=== PATIENT | female | born 1950 | race Caucasian/White ===

== ENCOUNTER 2019-03-13 05:20 | Day surgery (SDC) | payer MEDICARE, MEDICAID ==
[~2019-03-13] VITALS: Ht 157.5 cm; Wt 60.0 kg
[2019-03-13] MEDS ORDERED: SODIUM CHLORIDE 0.9% 1,000 ML IV ONE ×2 (05:31→05:45)
[2019-03-13 05:54] LABS: EOSINOPHILS % (AUTO) 2.1 % (1.0-6.0); HEMATOCRIT 38.4 % (36-46); LYMPHOCYTES # (AUTO) 1.5 K/uL (1.0-4.8); LYMPHOCYTES % (AUTO) 26.3 % (22.0-44.0); MEAN CORPUSCULAR HEMOGLOBIN 31.1 pg (26.0-34.0); MEAN CORPUSCULAR HGB CONC 33.9 G/dL (31.0-37.0); MEAN CORPUSCULAR VOLUME 92 fL (80-100); MONOCYTES # (AUTO) 0.5 K/uL (0.1-1.0); MONOCYTES % (AUTO) 8.7 % (2.0-9.0); NEUTROPHILS # (AUTO) 3.6 K/uL (1.8-7.7); NEUTROPHILS % (AUTO) 61.9 % (40.0-70.0); PLATELET COUNT (AUTO) 221 K/uL (150-450); RED BLOOD CELL COUNT(AUTO) 4.18 MIL/uL (4.00-5.20); RED CELL DISTRIBUTION WIDTH 12.6 % (11.5-14.5)
[2019-03-13 06:04] LABS: CALCIUM, TOTAL 9.4 mg/dL (8.8-10.5); CREATININE 1.08 mg/dL (0.60-1.30); INR 0.9 (0.9-1.1); POTASSIUM 3.8 mmol/L (3.5-5.1); PROTHROMBIN TIME 9.9 SEC (9.4-11.6)
[2019-03-13] MEDS ORDERED: VIT1CAPS26 PO (07:17)
[2019-03-13] MEDS ORDERED: LEVO125 PO (07:17)
[2019-03-13] MEDS ORDERED: FURO20 PO (07:17)
[2019-03-13] MEDS ORDERED: PARO20TA24 PO (07:17)
[2019-03-13] MEDS ORDERED: PREG75 PO (07:17)
[2019-03-13] MEDS ORDERED: ALEN70TA10 PO (07:17)
[2019-03-13] MEDS ORDERED: INSNOV SQ (07:17)
[2019-03-13] MEDS ORDERED: LISI-660 PO (07:17)
[2019-03-13] MEDS ORDERED: RANI150T7 PO (07:17)
[2019-03-13] MEDS ORDERED: ASPI81 PO (07:17)
[2019-03-13] MEDS ORDERED: INSLAN SQ (07:17)
[2019-03-13] MEDS ORDERED: ISOS60TA4 PO (07:17)
[2019-03-13] MEDS ORDERED: CLOP75TA3 PO (07:17)
[2019-03-13] MEDS ORDERED: SODIUM BICARBONATE 50 MEQ/50 ML VIAL ONE (07:23)
[2019-03-13] MEDS ORDERED: LIDOCAINE/PF 1% 30 ML VIAL ONE (07:23)
[2019-03-13 07:39] VITALS: BP 174/87
[2019-03-13] MEDS ORDERED: FentaNYL CITRATE-PF 100 MCG/2 ML VIAL ONE (07:51)
[2019-03-13] MEDS ORDERED: MIDAZOLAM HCL 2 MG/2 ML VIAL ONE (07:51)
[2019-03-13] MEDS ORDERED: FentaNYL CITRATE-PF 100 MCG/2 ML VIAL IVP ONE (08:15)
[2019-03-13] MEDS ORDERED: MIDAZOLAM HCL 2 MG/2 ML VIAL IVP ONE (08:15)
[2019-03-13] MEDS ORDERED: LIDOCAINE 1% 30 ML/SOD BICARB 8.4% 4 ML SQ ONE (08:15)
[2019-03-13 08:25] VITALS: BP 153/79
[2019-03-13] MEDS ORDERED: CeFAZolin 1 GM/DEXTROSE 50 ML IV ONE ×2 (10:08→10:30)
== END 2019-03-13 11:45 | disposition home or self-care (01) ==
LOC: SDS 05:20
PROVIDERS: ATTEND Internal Medicine Cardiovascular Disease
DX: I49.5 Sick sinus syndrome (principal); Z95.5 Presence of coronary angioplasty implant and graft; Z98.84 Bariatric surgery status; I25.2 Old myocardial infarction; Z79.899 Other long term (current) drug therapy
CPT/HCPCS: 33285; 36415; 80048; 85025; 85610; 85730; 93005; C1764; J0690; J2250; J3010; J3490 ×2; J7030